=== PATIENT | male | born 1980 | race Caucasian/White ===

== ENCOUNTER 2018-03-19 16:28 | Emergency (ER) | payer MEDICAID ==
[~2018-03-19] VITALS: Ht 172.7 cm; Wt 81.9 kg
[2018-03-19 16:34] VITALS: BP 122/75
== END 2018-03-19 16:57 | disposition home or self-care (01) ==
LOC: ED 16:40
DX: S21.212D Laceration without foreign body of left back wall of thorax without penetration into thoracic cavity, subsequent encounter (principal)
CPT/HCPCS: 99281

== ENCOUNTER 2019-02-23 02:08 | Emergency (ER) | payer SELFPAY ==
[~2019-02-23] VITALS: Ht 167.6 cm; Wt 84.0 kg
[2019-02-23] MEDS ORDERED: ONDANSETRON 2MG/ML, 2ML ONE (02:43)
[2019-02-23] MEDS ORDERED: MORPHINE SULFATE 4 MG/ML, 1ML ONE (02:43)
[2019-02-23] MEDS ORDERED: MORPHINE SULFATE 4 MG/ML, 1ML IVPush PRN (03:00)
[2019-02-23] MEDS ORDERED: SODIUM CHLORIDE FLUSH 10ML SYR IVF ONE (03:00)
[2019-02-23] MEDS ORDERED: ONDANSETRON 2MG/ML, 2ML IVPush ONE (03:00)
[2019-02-23] MEDS ORDERED: SODIUM CHLORIDE 0.9% 1,000ML IVBOLUS ONE (03:00)
--- NOTE | 2019-02-23 03:03 | NUR ---
PATIENT TOLERATED IV STARTED AND MEDICATIONS WELL. PATIENT GIVEN 2LNC FOR HYPOXEMIA AFTER MEDICATION ADMINISTRATION. PAIN LEVEL APPEARS TO HAVE IMPROVED, PATIENT RESTING IN BED. VITAL SIGNS STABLE. WILL CONTINUE TO MONITOR.
[2019-02-23 03:14] LABS: BASOPHILS # (AUTO) 0.04 x10^3/uL (0-0.1); BASOPHILS % (AUTO) 0 % (0-1); EOSINOPHILS # (AUTO) 0.02 x10^3/uL (0-0.4); EOSINOPHILS % (AUTO) 0 % (1-7); LYMPHOCYTES # (AUTO) 2.46 x10^3/uL (1-3.4); LYMPHOCYTES % (AUTO) 24 % (22-44); MD NO; MEAN CORPUSCULAR HEMOGLOBIN 30.2 pg (27.5-34.5); MEAN CORPUSCULAR HGB CONC 32.9 g/dL (33.2-36.2); MEAN CORPUSCULAR VOLUME 91.6 fL (81-97); MEAN PLATELET VOLUME 9.3 fL (7.4-10.4); MONOCYTES # (AUTO) 0.49 x10^3/uL (0.2-0.8); MONOCYTES % (AUTO) 5 % (2-9); NEUTROPHILS # (AUTO) 7.21 x10^3/uL (1.8-6.8); NEUTROPHILS % (AUTO) 71 % (42-75); PLATELET COUNT 190 x10^3/uL (130-400); RED BLOOD COUNT 5.48 x10^6/uL (4.38-5.82); RED CELL DISTRIBUTION WIDTH 13.5 % (9.4-14.8)
[2019-02-23 03:24] LABS: ALANINE AMINOTRANSFERASE 32 U/L (12-78); ALBUMIN 3.8 g/dL (3.4-5.0); ANION GAP 8 mmol/L (5-15); CALCIUM 8.6 mg/dL (8.5-10.1); CHLORIDE 102 mmol/L (98-107); CREATININE 0.98 mg/dL (0.7-1.3)
[2019-02-23 03:26] LABS: ALKALINE PHOSPHATASE 56 U/L (45-117); BILIRUBIN,TOTAL 0.6 mg/dL (0.2-1.0)
[2019-02-23 04:39] VITALS: BP 118/75
[2019-02-23] MEDS ORDERED: ASPIRIN 325 MG TABLET ONE (06:16)
== END 2019-02-23 04:56 | disposition home or self-care (01) ==
LOC: ED 04:35
DX: R11.2 Nausea with vomiting, unspecified (principal); R10.13 Epigastric pain; F10.120 Alcohol abuse with intoxication, uncomplicated; Y90.0 Blood alcohol level of less than 20 mg/100 ml
CPT/HCPCS: 36415; 80053; 80307; 83690; 85025; 93005; 96361; 96374; 96375; 99284; J2270; J2405; J7030